=== PATIENT | female | born 1940 | race Hispanic/Latino ===

== ENCOUNTER → 2018-11-22 | Outpatient (CLI) | payer OTHER, MEDICARE ==
[~2018-11-22] MED LIST: AMLO5TAB9 PO; ASPI-555 PO; LISI40TA4 PO
== END | disposition home or self-care (01) ==
LOC: SHCH 11:29
PROVIDERS: ATTEND Internal Medicine Cardiovascular Disease
DX: I11.9 Hypertensive heart disease without heart failure (principal); I49.3 Ventricular premature depolarization
CPT/HCPCS: 93306

== ENCOUNTER → 2019-01-14 | Outpatient (CLI) | payer OTHER, MEDICARE ==
[~2019-01-14] VITALS: Ht 167.6 cm; Wt 72.1 kg
[~2019-01-14] MED LIST changes: +REGADENOSON 0.4 MG/5 ML PF SYG IVP SCH
== END | disposition home or self-care (01) ==
LOC: SHCH 07:36
PROVIDERS: ATTEND Internal Medicine Cardiovascular Disease
DX: I25.10 Atherosclerotic heart disease of native coronary artery without angina pectoris (principal); I49.3 Ventricular premature depolarization; I25.89 Other forms of chronic ischemic heart disease
CPT/HCPCS: 78452; 93017; 96374; A9500 ×2; J2785

== ENCOUNTER → 2019-07-08 | Outpatient (CLI) | payer OTHER, MEDICARE ==
[~2019-07-08] MED LIST changes: -REGADENOSON 0.4 MG/5 ML PF SYG IVP SCH
== END | disposition home or self-care (01) ==
LOC: SHCH 10:23
PROVIDERS: ATTEND Internal Medicine Cardiovascular Disease
DX: I65.23 Occlusion and stenosis of bilateral carotid arteries (principal); I10 Essential (primary) hypertension
CPT/HCPCS: 93880

== ENCOUNTER → 2019-07-28 | Outpatient (CLI) | payer OTHER, MEDICARE ==
[~2019-07-28] MED LIST changes: +IOHEXOL 350 MG/ML 100ML INFUS..BTL IV ONE; +IOHEXOL-350 50ML VIAL IV ONE
== END | disposition home or self-care (01) ==
LOC: RAH 09:03
PROVIDERS: ATTEND Internal Medicine Cardiovascular Disease
DX: I70.201 Unspecified atherosclerosis of native arteries of extremities, right leg (principal); M47.815 Spondylosis without myelopathy or radiculopathy, thoracolumbar region; I25.10 Atherosclerotic heart disease of native coronary artery without angina pectoris; I77.1 Stricture of artery
CPT/HCPCS: 75635; Q9967 ×2

== ENCOUNTER → 2020-03-09 | Outpatient (CLI) | payer OTHER, MEDICARE ==
[~2020-03-09] MED LIST changes: -ASPI-555 PO; +ASPI-556 PO; -IOHEXOL 350 MG/ML 100ML INFUS..BTL IV ONE; -IOHEXOL-350 50ML VIAL IV ONE
== END | disposition home or self-care (01) ==
LOC: OIH 08:57
PROVIDERS: ATTEND Internal Medicine
DX: M25.562 Pain in left knee (principal); M16.0 Bilateral primary osteoarthritis of hip; M47.816 Spondylosis without myelopathy or radiculopathy, lumbar region; I70.8 Atherosclerosis of other arteries
CPT/HCPCS: 73502; 73560

== ENCOUNTER → 2020-10-13 | Outpatient (CLI) | payer OTHER, MEDICARE ==
[~2020-10-13] MED LIST changes: +AMLO-257 PO; -AMLO5TAB9 PO
== END | disposition home or self-care (01) ==
LOC: SHCH 14:00
PROVIDERS: ATTEND Internal Medicine Cardiovascular Disease
DX: I65.23 Occlusion and stenosis of bilateral carotid arteries (principal); I70.298 Other atherosclerosis of native arteries of extremities, other extremity; I10 Essential (primary) hypertension; R09.89 Other specified symptoms and signs involving the circulatory and respiratory systems
CPT/HCPCS: 93306; 93356; 93880; 93925

== ENCOUNTER → 2022-02-17 | Outpatient (CLI) | payer OTHER, MEDICARE ==
[~2022-02-17] MED LIST changes: -LISI40TA4 PO; +LISI40TA9 PO
== END | disposition home or self-care (01) ==
LOC: SHCH 10:58
PROVIDERS: ATTEND Internal Medicine Cardiovascular Disease
DX: I25.10 Atherosclerotic heart disease of native coronary artery without angina pectoris (principal)
CPT/HCPCS: 93306

== ENCOUNTER → 2022-07-20 | Outpatient (CLI) | payer OTHER, MEDICARE | END | disposition home or self-care (01) | LOC: RAH 10:20 | PROVIDERS: ATTEND Internal Medicine | DX: R06.02 Shortness of breath (principal) | CPT/HCPCS: 71046 ==